=== PATIENT | male | born 1985 ===

== ENCOUNTER 2023-10-03 10:04 | Outpatient (AMB) | payer OTHER, SELFPAY ==
--- NOTE | 2023-10-03 10:10 | AM.OFFWIN_ITS ---
Intake Vital Signs 10/03/23 10:12 Weight 145 lb 2 oz BP 124/88 Blood Pressure Location Lt brachial Position Sitting Pulse 70 Pulse Source Pulse Oximeter Pulse Oximetry (%) 99 Oxygen Delivery Method Room Air Intake Visit Reasons: Swelling in throat and tooth Intake Note: patient here c/o of pain on neck and swollen neck and back molar looks swollen. 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 He states that 2 days ago he woke up with a slightly sore throat and swelling of his lymph nodes. He states that he thinks his right molar is infected because the gums are inflamed and he states it feels swollen around the base of the tooth. He noticed it a lot more this morning when he was eating breakfast. He states that he went to buy on that side and there was a lot of pain with it. He did call his dentist but is unable to be seen until next week.. He denies fever or chills. He states that he still has all of his wisdom teeth and they are all impacted. He does have some intermittent right sided ear pain. He denies any sinus pain or pressure. No recent URI. No known sick contacts. He does not smoke. [facility], LATER [facility] Social History Patient Tobacco Use Status: Never used Tobacco Physical Exam Vital Signs: Last Vital Signs Pulse 70 10/03/23 10:12 BP 124/88 10/03/23 10:12 Pulse Ox 99 10/03/23 10:12 Oxygen Delivery Method Room Air 10/03/23 10:12 Const Orientation/consciousness: patient oriented x3 HEENT Ears: hearing grossly normal bilaterally and TM's normal bilaterally General nose exam: Normal nasal mucous membranes and turbinates present Face and sinus: Yes sinuses nontender Mouth: Normal oral and palatal mucosa present Teeth and gingiva: abnormal tooth and associated gingiva (Increased erythema and soft tissue swelling noted) lower right second molar Throat: Yes posterior oropharynx normal and Yes uvula midline Neck Thyroid: Thyroid normal Lymphatic: lymphadenopathy (Right-sided cervical lymphadenopathy) Resp Auscultation: clear to auscultation bilaterally Cardio Rate: regular rate Rhythm: regular rhythm Heart sounds: S1 normal heart sound present and S2 normal heart sound present Skin General skin exam: no rashes or lesions noted Neuro General: patient oriented x3 Assessment & Plan Assessment & Plan (1) Dental infection: Code(s): K04.7 - Periapical abscess without sinus Plan: We will start Augmentin. Discussed risks and benefits and adverse effects including GI upset, C diff. advised patient to contact dentist again to let them know that it does look consistent with an abscess. He will follow up if anything worsens or changes. Advised him to continue with ibuprofen. Patient understands and agrees with this plan. Medications: New amoxicillin-pot clavulanate 875-125 mg 1 tab PO Q12H 20 tabs 0RF Coding Level of Care Code Est Pt Level 3 (42826) Diagnoses Dental infection K04.7
[2023-10-03 10:12] VITALS: BP 124/88; PULSE 70; O2SAT 99
== END 2023-10-03 10:46 | disposition home or self-care (01) ==
PROVIDERS: Visit Provider Physician Assistant
DX: K04.7 Periapical abscess without sinus (principal)
CPT/HCPCS: 99213